=== PATIENT | female | born 1980 | race Caucasian/White ===

== ENCOUNTER → 2019-04-03 | Outpatient (CLI) | payer OTHER ==
--- NOTE | 2019-04-03 15:48 | KCIC ---
EXAM: Left wrist, 4 views. HISTORY: Pain. Fall. COMPARISON: None. FINDINGS: 4 views of the left wrist are obtained. There is no acute fracture, dislocation or subluxation. IMPRESSION: No acute osseous finding. Electronically signed by: Whitney Cox MD (04/03/2019 3:45 PM) [facility] [place]
== END | disposition home or self-care (01) ==
LOC: KCIC 15:18
PROVIDERS: ATTEND Nurse Practitioner Gerontology
DX: M25.532 Pain in left wrist (principal)
CPT/HCPCS: 73110

== ENCOUNTER → 2020-03-21 | Outpatient (CLI) | payer OTHER ==
--- NOTE | 2020-03-21 10:01 | RAD ---
US ABDOMEN COMPLETE Realtime grayscale images of the abdomen with color and pulsed doppler utilized as appropriate. History: Reason: ABD PAIN / Spl. Instructions: / History: Comparison: None. Findings: The liver is normal in appearance and echogenicity. No intrahepatic biliary ductal dilatation or mas s is seen. No gallstones, pericholecystic fluid, or gallbladder wall thickening are seen. The commo n bile duct is normal in diameter and measures 0.2 cm. Portal Vein flow is hepatopetal. The pancreas is normal in appearance, although the tail is not well visualized. The aorta and IVC are normal diameter where visualized. The right kidney is normal in appearance, measuring 10.7 cm in length. The left kidney is normal in a ppearance, measuring 10.4 cm in length. No hydronephrosis or perinephric fluid are seen bilaterally. The spleen is normal in appearance and measures 11.8 cm. Impression: Unremarkable ultrasound examination of the abdomen. Electronically signed by: Hemant Bentley MD (03/21/2020 9:59 AM) [id number]
== END ==
LOC: US 07:06
PROVIDERS: ATTEND Family Medicine
DX: R10.9 Unspecified abdominal pain (principal)
CPT/HCPCS: 76700

== ENCOUNTER → 2021-05-30 | Outpatient (CLI) | payer OTHER ==
--- NOTE | 2021-05-30 12:21 | KCIC ---
Bilateral digital screening mammograms: Reason for examination: Routine baseline screening. Interpretation was made with the benefit of CAD. The skin and nipples show no abnormalities. No abnormal axillary lymph nodes are seen. The breast par enchyma is extremely dense. (Breast density: Category D.) There are no dominant masses, suspicious ca lcifications or architectural distortion. Impression: No evidence of malignancy. Recommend routine screening. Your patient's mammogram demonstrates that she has dense breast tissue (breast density category C or D), which could hide abnormalities, and if she has other risk factors for breast cancer that have bee n identified, she might benefit from supplemental screening tests that may be suggested by you as her ordering physician. Dense breast tissue, in and of itself, is a relatively common condition. Therefo re, this information is not provided to cause undue concern, but rather to raise your awareness and t o promote discussion with your patient regarding the presence of other risk factors, in addition to d ense breast tissue. Your patient's mammography results will be sent to her. BI-RAD Category 1: Negative. "Our facility is accredited by the [employer] Mammography Program." This patient's information has been entered into a reminder system for the patient to be notified wit h the results of her examination and a target date for the next mammogram. Electronically signed by: Lis Escobar MD (05/30/2021 10:56 AM) [id number]
== END ==
LOC: KCIC MAMMO 08:05
PROVIDERS: ATTEND Nurse Practitioner Family
DX: Z12.31 Encounter for screening mammogram for malignant neoplasm of breast (principal)
CPT/HCPCS: 77067